=== PATIENT | female | born 1980 | race Caucasian/White ===

== ENCOUNTER 2020-03-10 09:53 | Emergency (ER) | payer MEDICAID ==
[~2020-03-10] VITALS: Ht 167.6 cm; Wt 63.0 kg
[2020-03-10 10:09] VITALS: BP 129/99
== END 2020-03-10 14:04 | disposition home or self-care (01) ==
LOC: ER 09:53
DX: S19.80XA Other specified injuries of unspecified part of neck, initial encounter (principal); S49.82XA Other specified injuries of left shoulder and upper arm, initial encounter; S69.81XA Other specified injuries of right wrist, hand and finger(s), initial encounter; G89.11 Acute pain due to trauma; R03.0 Elevated blood-pressure reading, without diagnosis of hypertension; E03.9 Hypothyroidism, unspecified; Y04.2XXA Assault by strike against or bumped into by another person, initial encounter; Y93.89 Activity, other specified; Y92.488 Other paved roadways as the place of occurrence of the external cause; Y99.0 Civilian activity done for income or pay
CPT/HCPCS: 72040; 73030; 73130; 99284

== ENCOUNTER 2020-04-29 17:31 | Emergency (ER) | payer MEDICAID ==
[~2020-04-29] VITALS: Ht 167.6 cm; Wt 78.0 kg
[2020-04-29 18:28] LABS: CLARITY URINE CLEAR (CLEAR); COLOR URINE YELLOW (YELLOW); KETONES URINE NEGATIVE (NEGATIVE); LEUKOCYTE ESTERASE URINE NEGATIVE (NEGATIVE); NITRITE URINE NEGATIVE (NEGATIVE); OCCULT BLOOD URINE TRACE (NEGATIVE); PROTEIN URINE NEGATIVE (NEGATIVE); SPECIFIC GRAVITY URINE 1.022 (1.005-1.030); UROBILINOGEN URINE 0.2 E.U./dL (0.2-1.0)
[2020-04-29] MEDS ORDERED: HYDROCODONE/ACETAMINOPHEN 5/325MG TABLET PO STA (18:58)
[2020-04-29] MEDS ORDERED: MAGNESIUM/ALUMINUM HYDROXIDE/SIMETHICONE 30ML UDC PO STA (18:58)
[2020-04-29] MEDS ORDERED: FAMOTIDINE 20MG TABLET PO ONE (19:00)
[2020-04-29 19:24] LABS: BASOPHILS % 0.8 % (0.0-2.0); EOSINOPHILS % 8.7 % (0.0-5.0); HEMATOCRIT. 38.1 % (36.0-48.0); HEMOGLOBIN. 12.4 g/dL (12.0-16.0); LYMPHOCYTES % 49.7 % (20.0-50.0); MEAN CORPUSCULAR HEMOGLOBIN 26.2 pg (28.0-32.0); MEAN CORPUSCULAR VOLUME 80.5 fL (81.0-99.0); MEAN PLATELET VOLUME 9.1 fl (7.4-10.4); MONOCYTES % 11.1 % (2.0-8.0); NEUTROPHILS % 29.7 % (40.0-76.0); PLATELET 280 x1000/uL (130-400); RED BLOOD CELL COUNT 4.73 mill/uL (4.2-5.4); RED CELL DISTRIBUTION WIDTH 14.9 % (11.6-14.6)
[2020-04-29 19:30] LABS: CHLORIDE 106 mEq/L (98-107)
[2020-04-29 19:51] LABS: PROTHROMBIN TIME 10.2 sec (9.6-11.0)
[2020-04-29 20:25] VITALS: BP 115/81
== END 2020-04-29 20:26 | disposition home or self-care (01) ==
LOC: ER 17:49
DX: R10.13 Epigastric pain (principal); D72.819 Decreased white blood cell count, unspecified
CPT/HCPCS: 36415; 80053; 81003; 81025; 85025; 99284